=== PATIENT | female | born 1965 | race Caucasian/White ===

== ENCOUNTER 2022-01-20 01:20 | Emergency (ER) | payer MEDICAID ==
[~2022-01-20] VITALS: Ht 152.4 cm; Wt 73.0 kg
[2022-01-20 01:24] VITALS: BP 142/79
--- NOTE | 2022-01-20 01:30 | NUR ---
EXAMINING PT IN TRIAGE.
--- NOTE | 2022-01-20 01:35 | NUR ---
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
--- NOTE | 2022-01-20 01:37 | NUR ---
L SIDED FACIAL DROOP AND UNILATERAL WEAKNESS/HEADACHES ONSET 2 WEEKS AGO
[2022-01-20] MEDS ORDERED: KETOROLAC 60 MG/2 ML VIAL IM ONE (03:15)
[2022-01-20] MEDS ORDERED: IBUP-2213 PO (03:23)
[2022-01-20] MEDS ORDERED: ONDA8TAB87 PO (03:23)
--- NOTE | 2022-01-20 03:26 | NUR ---
PATIENT CLEARED FOR DISHCARGE AT THIS TIME. ADVISED TO FOLLOW UP WITH PCP AND RETURN IF CONDITION WORSENS. NO OTHER COMPLAINTS OR CONCERNS AT THIS TIME FOLLOWING DISHCARGE TEACHING.
[2022-01-20 03:27] VITALS: BP 137/88
== END 2022-01-20 03:26 | disposition home or self-care (01) ==
LOC: MED 01:20
DX: R29.810 Facial weakness (principal); R51.9 Headache, unspecified
CPT/HCPCS: 70450; 96372; 99284; J1885